=== PATIENT | male | born 1970 | race Caucasian/White ===

== ENCOUNTER 2023-07-30 14:01 | Emergency (ER) | payer OTHER ==
[~2023-07-30] VITALS: Ht 165.1 cm; Wt 70.0 kg
[2023-07-30 14:15] VITALS: O2SAT 98
[2023-07-30 14:55] LABS: BASOPHILS % 0.2 % (0.0-2.0); EOSINOPHILS % 0.5 % (0.0-5.0); HEMATOCRIT. 47.1 % (42.0-52.0); HEMOGLOBIN. 15.9 g/dL (14.0-18.0); LYMPHOCYTES % 8.5 % (20.0-50.0); MEAN CORPUSCULAR HEMOGLOBIN 28.8 pg (28.0-32.0); MEAN CORPUSCULAR HGB CONC 33.6 g/dL (31.0-37.0); MEAN CORPUSCULAR VOLUME 85.5 fL (80.0-94.0); MEAN PLATELET VOLUME 8.4 fl (7.4-10.4); MONOCYTES % 3.5 % (2.0-8.0); NEUTROPHILS % 87.3 % (40.0-76.0); PLATELET 244 x1000/uL (130-400); RED BLOOD CELL COUNT 5.51 mill/uL (4.7-6.1); WHITE BLOOD COUNT 9.8 x1000/uL (4.5-11.0)
[2023-07-30 15:19] LABS: ALANINE AMINOTRANSFERASE 18 IU/L (10-49); ALBUMIN 3.5 g/dL (3.2-4.8); ASPARTATE AMINOTRANSFERASE 16 IU/L (<34); BETA HYDROXYBUTYRATE 2.1 mMol/L (0.0-0.3); BILIRUBIN TOTAL 0.5 mg/dL (0.1-1.0); CALCIUM 8.6 mg/dL (8.7-10.4); CARBON DIOXIDE 27 mEq/L (21-32); CHLORIDE 97 mEq/L (98-107); POTASSIUM 4.9 mEq/L (3.5-5.1); PROTEIN TOTAL 6.4 g/dL (6.0-8.3); SODIUM 132 mEq/L (136-145); UREA NITROGEN BLOOD 19 mg/dL (9-23)
[2023-07-30 15:20] LABS: GLUCOSE 532 mg/dL (70-105)
[2023-07-30] MEDS ORDERED: SODIUM CHLORIDE 0.9% 1,000 ML IV ONE ×2 (17:15)
[2023-07-30] MEDS ORDERED: INSULIN REGULAR (HUMULIN R) 300UNITS/3ML VIAL SUBCUT ONE (17:15)
[2023-07-30] MEDS ORDERED: INSULIN REGULAR (HUMULIN R) 300UNITS/3ML VIAL SUBCUT NR (18:30)
[2023-07-30 20:51] VITALS: BP 132/76; PULSE 86; RESP 13; TEMP 98.4
[2023-07-30] MEDS ORDERED: ACETAMINOPHEN 325MG TABLET PO ONE (22:15)
== END 2023-07-30 22:40 | disposition home or self-care (01) ==
LOC: ER 14:01
DX: E11.65 Type 2 diabetes mellitus with hyperglycemia (principal); R53.1 Weakness; R42 Dizziness and giddiness
CPT/HCPCS: 99284; 96360; 80053; 82010; 82962; 85025; 36415; 93005; 96372; J7030; J1815